=== PATIENT | male | born 1990 | race Caucasian/White ===

== ENCOUNTER 2023-01-29 10:58 | Emergency (ER) | payer OTHER, BC ==
[2023-01-29 11:12] VITALS: BP 142/76; PULSE 75; RESP 18; TEMP 98.1; BMI 37.3
[2023-01-29] MEDS ORDERED: IBUPROFEN 600 MG TABLET (FP) PO ONE ×2 (11:53→11:54)
== END 2023-01-29 12:30 | disposition home or self-care (01) ==
LOC: JERFT 10:58
CPT/HCPCS: 73130-TC-RT-FY